=== PATIENT | female | born 1995 | race Caucasian/White ===

== ENCOUNTER 2018-10-12 19:17 | Emergency (ER) | payer SELFPAY ==
[2018-10-12 19:17] VITALS: BMI 22.3
[2018-10-12 19:27] VITALS: O2SAT 99
[2018-10-12] MEDS ORDERED: Sodium Chloride 0.9% 1,000 ML IV ONE (19:41)
--- NOTE | 2018-10-12 19:41 | C.PDOC ---
History Of Present Illness Patient presents to the ER with left flank pain, fever, some nausea, foul smelling urine, and dysuria for the past 5 days. She took a home test which was negative. Denies diarrhea or vomiting. Time Seen by Provider: 10/12/18 19:41 Chief Complaint (Nursing): Abdominal Pain History Per: Patient History/Exam Limitations: no limitations Onset/Duration Of Symptoms: Days Current Symptoms Are (Timing): Still Present Severity: Moderate Pain Scale Rating Of: 4 Location Of Pain/Discomfort: Other (Left flank) Radiation Of Pain To:: None Quality Of Discomfort: Unable To Describe Associated Symptoms: Fever, Nausea, Urinary Symptoms (Foul smelling urine, dysuria). denies: Vomiting, Diarrhea Exacerbating Factors: None Alleviating Factors: None Recent travel outside of the [place]: No Abnormal Vaginal Bleeding: No Past Medical History Reviewed: Historical Data, Nursing Documentation, Vital Signs Vital Signs: Last Vital Signs Temp 100.8 F H 10/12/18 19:24 Pulse 115 H 10/12/18 19:24 Resp 22 10/12/18 19:24 BP 151/84 H 10/12/18 19:24 Pulse Ox 99 10/12/18 19:24 Primary Care Provider: Non [facility] Provider, Family History: States: No Known Family Hx - Social History Hx Tobacco Use: No Hx Alcohol Use: No Hx Substance Use: No - Immunization History Hx Tetanus Toxoid Vaccination: Yes Hx Influenza Vaccination: Yes Hx Pneumococcal Vaccination: No Review Of Systems Constitutional: Positive for: Fever. Negative for: Chills Cardiovascular: Negative for: Chest Pain, Palpitations Respiratory: Negative for: Cough, Shortness of Breath Gastrointestinal: Positive for: Nausea. Negative for: Vomiting Genitourinary: Positive for: Dysuria, Other (Foul smelling urine) Musculoskeletal: Positive for: Other (Left flank pain) Neurological: Negative for: Weakness, Numbness Physical Exam - Physical Exam Appears: Non-toxic Skin: Warm, Dry Head: Normacephalic Eye(s): bilateral: Normal Inspection Oral Mucosa: Moist Chest: Symmetrical, No Tenderness Cardiovascular: Rhythm Regular Respiratory: No Rales, No Rhonchi, No Wheezing Gastrointestinal/Abdominal: Soft, Tenderness (LLQ/Left flank), No Guarding, No Rebound Neurological/Psych: Oriented x3 ED Course And Treatment - Laboratory Results Result Diagrams: 10/12/18 19:51 10/12/18 19:51 O2 Sat by Pulse Oximetry: 99 (Room air) Pulse Ox Interpretation: Normal Progress Note: Blood work and urinalysis ordered. IV fluids administered.\. spoke with pt re: abnormal liver tests. explained that she needs to repeat them in a few weeks or return if she has ruq pain, nausea, vomiting, jaundice or just not feeling well. Feels fine now for discharge Reevaluation Time: 21:57 Reassessment Condition: Improved Medical Decision Making Medical Decision Making: Upon provider reevaluation patient is feeling better, is medically stable, and requires no further treatment in the ED at this time. Patient will be discharged home with Rx for macrobid . Counseling was provided and all questions were answered regarding diagnosis and need for follow up with the referred clinic. There is agreement to discharge plan. Return if symptoms persist or worsen. Disposition Counseled Patient/Family Regarding: Studies Performed, Diagnosis, Need For Followup, Rx Given - Disposition Referrals: [facility] [Outside] [facility] [Outside] Disposition: HOME/ ROUTINE Disposition Time: 19:41 Condition: FAIR Additional Instructions: Please return if symptoms recur. Will need to repeat the liver enzymes test in a few weeks Prescriptions: Nitrofurantoin Macrocrystals [Macrobid] 1 cap PO BID #[id number] cap Instructions: Urinary Tract Infection, Adult (DC), Liver Function Test Forms: [employer] Connect (Micronesian) - Clinical Impression Clinical Impression: UTI (urinary tract infection), Elevated liver enzymes - Scribe Statement The provider has reviewed the documentation as recorded by the Scribe Panchito Sutton All medical record entries made by the Scribe were at my direction and personally dictated by me. I have reviewed the chart and agree that the record accurately reflects my personal performance of the history, physical exam, medical decision making, and the department course for this patient. I have also personally directed, reviewed, and agree with the discharge instructions and disposition.
[2018-10-12 19:57] LABS: BASO # 0.1 K/uL (0.0-0.2); BASO % 0.7 % (0.0-2.0); EOS % 0.3 % (0.0-4.0); HEMOGLOBIN 10.6 g/dL (11.0-16.0); LYMPH # 1.7 K/uL (1.0-4.3); LYMPH % 23.9 % (20.0-40.0); MEAN CELL VOLUME 88.2 fL (81.0-99.0); MEAN CORPUSCULAR HEMOGLOBIN 29.3 pg (27.0-31.0); MEAN CORPUSCULAR HGB CONC 33.2 g/dL (33.0-37.0); MEAN PLATELET VOLUME 11.4 fL (7.2-11.7); MONO # 1.1 K/uL (0.0-0.8); MONO % 15.1 % (0.0-10.0); NEUT # 4.3 K/uL (1.8-7.0); RBC 3.6 Mil/uL (3.80-5.20); RED CELL DISTRIBUTION WIDTH 13.3 % (11.5-14.5); WHITE BLOOD COUNT 7.2 K/uL (4.8-10.8)
[2018-10-12 20:06] LABS: HCG,QUALITATIVE URINE NEGATIVE (NEGATIVE)
[2018-10-12 20:10] LABS: ALBUMIN 4.4 g/dL (3.5-5.0); ALT/SGPT 120 U/L (9-52); AST/SGOT 180 U/L (14-36); BLOOD UREA NITROGEN 10 mg/dL (7-17); CALCIUM 9.4 mg/dl (8.6-10.4); GFR NON-AFRICAN AMERICAN > 60; LIPASE 213 U/L (23-300)
[2018-10-12 20:31] LABS: SQUAMOUS EPITHIAL 5 /hpf (0-5); URINE BACTERIA MANY (<OCC); URINE BILIRUBIN NEGATIVE (NEGATIVE); URINE BLOOD 1+ (NEGATIVE); URINE CLARITY Hazy (Clear); URINE COLOR Yellow (YELLOW); URINE GLUCOSE (UA) NORMAL (Normal); URINE LEUKOCYTE ESTERASE 3+ Leu/uL (Negative); URINE PROTEIN NEGATIVE (NEGATIVE); URINE UROBILINOGEN NORMAL mg/dL (0.2-1.0)
[2018-10-12] MEDS ORDERED: cefTRIAXone IV 1 gm in Dextros 50 ML IVPB ONE (20:35)
[2018-10-12 22:24] VITALS: BP 114/76; PULSE 81; RESP 18; TEMP 99.8
== END 2018-10-12 22:24 | disposition home or self-care (01) ==
LOC: C.ER 19:17
DX: N39.0 Urinary tract infection, site not specified (principal); R74.8 Abnormal levels of other serum enzymes
CPT/HCPCS: 80053; 81001; 83690; 84703; 85025; 96361; 96374; 99284; J0696; J7030